=== PATIENT | male | born 1990 | race Asian ===

== ENCOUNTER 2022-01-09 20:32 | Emergency (ER) | payer OTHER ==
[~2022-01-09] VITALS: Ht 160 cm; Wt 57.6 kg
[2022-01-09] MEDS ORDERED: PREDNISONE20 MG PO (22:23)
[2022-01-09] MEDS ORDERED: ACYCLOVIR800 MG PO (22:25)
[2022-01-09] MEDS ORDERED: HYDROXYZINE HCL25 MG PO (22:26)
[2022-01-09] MEDS ORDERED: PREDNISONE 20 MG TAB PO ONE (23:00)
== END 2022-01-09 23:05 | disposition home or self-care (01) ==
LOC: FSED 20:45
DX: L42 Pityriasis rosea (principal); L29.9 Pruritus, unspecified; L30.9 Dermatitis, unspecified; F17.210 Nicotine dependence, cigarettes, uncomplicated
CPT/HCPCS: 99283